=== PATIENT | male | born 1995 | race African-American/Black ===

== ENCOUNTER 2024-06-09 13:59 | Emergency (ER) | payer OTHER, SELFPAY ==
[2024-06-09 14:03] VITALS: BP 125/85; PULSE 94; RESP 16; TEMP 36.4; O2SAT 100
--- NOTE | 2024-06-09 14:40 | PC.NURSE ---
Pt states he normally wears glasses but does not have them with him
--- NOTE | 2024-06-09 14:53 | ED_ITS ---
HPI - Eye Problem General Chief complaint: Eye Problems Stated complaint: left eye Time Seen by Provider: 06/09/24 14:05 History of Present Illness HPI Narrative: 28-year-old male presents emergency room for evaluation of left eyelid swelling. Patient states that the eyelid has been swollen for 1 week. Was recently seen in outside emergency room for similar symptoms and given a prescription for artificial tears. Patient states he has not experienced any vision changes or vision loss. Denies any injury. Does not were contacts. States his experienced some clear discharge from. Related Data Allergies Allergy/AdvReac Type Severity Reaction Status Date / Time No Known Allergies Allergy Verified 06/09/24 14:05 Review of Systems Review of Systems: ROS unremarkable except for noted in HPI Exam Narrative: GENERAL: Well-appearing, well-nourished, no physical limitations, and in no acute distress. HEAD: Normocephalic, atraumatic. EYES: Conjunctivae normal, PERRLA and EOMI. Left upper eyelid swelling and erythema. Scant amount ofclear discharge NECK: Supple. No meningeal signs. No adenopathy or masses. No carotid bruits or JVD CHEST: Clear to auscultation. No respiratory distress. No wheezes rales or rhonchi. HEART: Regular rate and rhythm. No murmur heard. Normal peripheral pulses. EXTREMITIES: Normal range of motion. No edema. No clubbing or cyanosis SKIN: Warm, dry, no rash. No noted wounds NEURO: No focal deficits. Alert and oriented x3. MAEW. CN's II-XI intact bilaterally, normal gait PSYCH: Cooperative. Normal mood and affect. Course Vital Signs Vital signs: Vital Signs Temperature 36.4 C 06/09/24 14:03 Pulse Rate 94 06/09/24 14:03 Respiratory Rate 16 06/09/24 14:03 Blood Pressure 125/85 06/09/24 14:03 Pulse Oximetry 100 06/09/24 14:03 Oxygen Delivery Room Air 06/09/24 14:03 Temperature 36.4 C 06/09/24 14:03 Pulse Rate 94 06/09/24 14:03 Respiratory Rate 16 06/09/24 14:03 Blood Pressure 125/85 06/09/24 14:03 Pulse Oximetry 100 06/09/24 14:03 Oxygen Delivery Room Air 06/09/24 14:03 Procedures Other Procedure Procedure 1: Other Procedure: Left eye Anesthetized with tetracaine. Fluorescein strip applied. Negative Gwen sign. No fluorescein uptake observed Discharge Plan Discharge Clinical Impression: Blepharitis Patient Disposition: Home, Self-Care Condition: Stable Instructions: Antibiotic Form, Blepharitis (ED) Additional Instructions: Apply warm wet compresses to eye lid 4 times daily. If no improvement after completing the antibiotics recommend following up with eye doctor. Prescriptions: New erythromycin 5 mg/gram (0.5 %) ointment 1 applic LEFT EYE DAILY 7 Days Qty: 3.5 0RF Follow-up/Referrals: PHYSICIAN,FAX MACHINE REPAIRER [Primary Care Provider] - Time of Disposition: 14:56
[2024-06-09 15:16] VITALS: BP 110/66; PULSE 60; RESP 14; TEMP 37.1; O2SAT 100
== END 2024-06-09 15:18 | disposition home or self-care (01) ==
LOC: ANHED 15:04
PROVIDERS: Emergency Provider Nurse Practitioner Family
DX: H01.004 Unspecified blepharitis left upper eyelid (principal)
CPT/HCPCS: 99283